=== PATIENT | male | born 1935 | race Caucasian/White ===

== ENCOUNTER 2018-11-15 14:00 | Inpatient (IN) | payer OTHER ==
[~2018-11-15] VITALS: Ht 172.7 cm; Wt 69.4 kg
[2018-11-15 14:48] VITALS: BP 188/99
[2018-11-15 14:48] LABS: APPEARANCE,URINE Clear (CLEAR); BILIRUBIN,URINE Negative (NEGATIVE); COLOR,URINE Yellow (YELLOW); GLUCOSE, URINE (UA) Negative (NEGATIVE); KETONES,URINE Negative (NEGATIVE); LEUKOCYTE ESTERASE ,URINE Negative (NEGATIVE); NITRATE,URINE Negative (NEGATIVE); OCCULT BLOOD,URINE Negative (NEGATIVE); PROTEIN,URINE Negative (NEGATIVE)
[2018-11-15 14:49] LABS: BASOPHILS % (AUTO) 1.1 % (0.0-5.0); EOSINOPHILS % (AUTO) 3.4 % (0.0-8.0); HEMATOCRIT 42.6 % (42-54); MEAN CORPUSCULAR HEMOGLOBIN 33.2 pg (27.0-33.0); MEAN CORPUSCULAR HGB CONC 33.9 g/dL (32.0-36.0); MEAN CORPUSCULAR VOLUME 98.1 fL (79-99); NEUTROPHILS % (AUTO) 68.5 % (40.0-77.0); NUCLEATED RED BLOOD CELLS 0.2 % (0.0-0.19); PLATELET COUNT (AUTO) 145 K/uL (130-400); RED BLOOD CELL COUNT(AUTO) 4.34 MIL/uL (4.50-6.20); RED CELL DISTRIBUTION WIDTH 13.1 % (11.0-15.5)
[2018-11-15 15:01] LABS: INR 1.02 (0.85-1.15); PARTIAL THROMBOPLASTIN TIME 31.5 SEC (26.3-35.5); PROTHROMBIN TIME 10.7 SEC (9.6-11.6)
[2018-11-15 15:03] LABS: CREATININE 1.1 mg/dL (0.5-1.5); POTASSIUM 5.3 mmol/L (3.5-5.1)
[2018-11-15] MEDS ORDERED: ATOR10TA69 PO (15:18)
[2018-11-15] MEDS ORDERED: DOCU50CA13 PO (15:21)
[2018-11-15] MEDS ORDERED: LOSA100T58 PO (15:21)
[2018-11-15] MEDS ORDERED: ASPI-555 PO (15:21)
[2018-11-15] MEDS ORDERED: TAMS-1 PO (15:21)
[2018-11-15] MEDS ORDERED: MULT-1258 PO (15:21)
[2018-11-15] MEDS ORDERED: CARV25TA PO (15:21)
[2018-11-15] MEDS ORDERED: AREDS PO (15:21)
[2018-11-15] MEDS ORDERED: CEFAZOLIN SODIUM 1 GM VIAL IVP SCH (17:45)
[2018-11-15] MEDS ORDERED: SODIUM CHLORIDE 0.9% 1000ML 1,000 ML IV SCH (17:45)
--- NOTE | 2018-11-16 11:31 | NUR ---
ABNORMAL LABS ABNORMAL LABS REPORTED TO DR. NANCE, NA 129, POTASSIUM 5.3. ORDERS TO REPEAT BMP IN AM UPON ARRIVAL TO HOLDING AREA.
[2018-11-17] VITALS (30 sets, daily range): BP systolic 97–152; BP diastolic 51–84
--- NOTE | 2018-11-17 05:58 | NUR ---
POTENTIAL FOR INFECTION: SHAVED CHEST, ABDOMEN, BILATERAL GROIN AND BILATERAL LEGS PER FRED ALMONTE, FOLLOWED BY WIPING WITH SEDRICK: 2% CHLORHEXIDINE GLUCONATE CLOTH PATIENTS PRE-OP SKIN PREP.
[2018-11-17 06:25] LABS: CREATININE 1.1 mg/dL (0.5-1.5); POTASSIUM 3.9 mmol/L (3.5-5.1)
--- NOTE | 2018-11-17 06:40 | NUR ---
PUPIL OCCURRENCE: RIGHT EYE MILD SLUGGISH, PATIENT WITH HISTORY OF MACULAR DEGENERATION.
[2018-11-17] MEDS ORDERED: HEPARIN SODIUM 1000UNIT/ML 10ML VIAL ONE ×3 (06:56→10:03)
[2018-11-17] MEDS ORDERED: ATROPINE SULFATE 0.1 MG/ML 10 ML SYG IVP ONE (06:57)
[2018-11-17] MEDS ORDERED: IODIXANOL 320 MG/ML 100 ML VIAL ONE ×2 (06:57→08:55)
[2018-11-17] MEDS ORDERED: CEFAZOLIN SODIUM 1 GM VIAL ONE (07:34)
[2018-11-17] MEDS ORDERED: NITROGLYCERIN 5 MG/ML 10 ML VIAL IV ONE (08:53)
[2018-11-17] MEDS ORDERED: ONDANSETRON HCL 4 MG/2 ML VIAL IV PRN (11:15)
[2018-11-17] MEDS ORDERED: MORPHINE SULFATE 4 MG/1ML SYG IV PRN (11:15)
[2018-11-17] MEDS ORDERED: NOREPINEPHRINE 4MG/NS 250ML 250 ML IV SCH (11:15)
[2018-11-17] MEDS ORDERED: NITROGLYCERIN 50 MG/D5% WATER 250 BOT IV PRN (11:15)
[2018-11-17] MEDS ORDERED: MORPHINE SULFATE 5 MG/ML VIAL IV PRN (11:15)
[2018-11-17] MEDS ORDERED: SODIUM CHLORIDE 0.9% 1000ML 1,000 ML IV SCH (11:15)
[2018-11-17] MEDS: CEFAZOLIN SODIUM 1 GM VIAL IVP SCH (17:10)
[2018-11-17] MEDS ORDERED: ATORVASTATIN CALCIUM 10 MG TABLET PO SCH (21:00)
[2018-11-17] MEDS ORDERED: TAMSULOSIN HCL 0.4 MG CAP.ER.24H PO SCH (21:00)
[2018-11-17] MEDS ORDERED: DOCUSATE NA 100MG/10ML UDCUP PO SCH (21:00)
[2018-11-17] MEDS: AREDS PO SCH (21:00)
[2018-11-17] MEDS: CARVEDILOL 25 MG TABLET PO SCH (21:10)
[2018-11-18] VITALS (28 sets, daily range): BP systolic 111–174; BP diastolic 51–90
[2018-11-18] MEDS: CEFAZOLIN SODIUM 1 GM VIAL IVP SCH (00:06)
[2018-11-18 03:41] LABS: HEMATOCRIT 38.8 % (42-54); MEAN CORPUSCULAR HGB CONC 34.9 g/dL (32.0-36.0); MEAN CORPUSCULAR VOLUME 97.7 fL (79-99); PLATELET COUNT (AUTO) 135 K/uL (130-400); RED BLOOD CELL COUNT(AUTO) 3.97 MIL/uL (4.50-6.20); RED CELL DISTRIBUTION WIDTH 13.7 % (11.0-15.5); WHITE BLOOD COUNT (AUTO) 7.8 K/uL (4.8-10.8)
[2018-11-18 03:53] LABS: CREATININE 1.1 mg/dL (0.5-1.5)
[2018-11-18] MEDS: CARVEDILOL 25 MG TABLET PO SCH (08:46)
[2018-11-18] MEDS: AREDS PO SCH (08:47)
[2018-11-18] MEDS ORDERED: LOSARTAN 100 MG TABLET PO SCH (09:00)
[2018-11-18] MEDS ORDERED: ASPIRIN 81 MG EC TAB PO SCH (09:00)
[2018-11-18] MEDS ORDERED: MULTIVITAMIN WITH MINERALS TABLET PO SCH (09:00)
--- NOTE | 2018-11-18 10:00 | NUR ---
cm note pt resides with son, independnet with adls and ambulation. dc plan is back to same home setting. Addendum: 11/18/18 at 1847 by JAIRO SINGH CM Amended: Links added.
[2018-11-18] MEDS ORDERED: AMLODIPINE BESYLATE 5 MG TAB PO SCH (13:45)
== END 2018-11-18 16:43 | disposition home or self-care (01) | DRG 269 ==
LOC: EDSTATUS 14:00 → DAHIP 11-17 05:38 → 2BH 11-17 11:39
PROVIDERS: ADMIT Internal Medicine Pulmonary Disease; ATTEND Internal Medicine Pulmonary Disease
PROC: 04V03DZ Restriction of Abdominal Aorta with Intraluminal Device, Percutaneous Approach (ICD-10-PCS; principal; 2018-11-17)
PROC: 04QL3ZZ Repair Left Femoral Artery, Percutaneous Approach (ICD-10-PCS; 2018-11-17)
PROC: B4101ZZ Fluoroscopy of Abdominal Aorta using Low Osmolar Contrast (ICD-10-PCS; 2018-11-17)
PROC: B4141ZZ Fluoroscopy of Superior Mesenteric Artery using Low Osmolar Contrast (ICD-10-PCS; 2018-11-17)
PROC: B4151ZZ Fluoroscopy of Inferior Mesenteric Artery using Low Osmolar Contrast (ICD-10-PCS; 2018-11-17)
PROC: 04QK3ZZ Repair Right Femoral Artery, Percutaneous Approach (ICD-10-PCS; 2018-11-17)
PROC: 04VB3DZ Restriction of Inferior Mesenteric Artery with Intraluminal Device, Percutaneous Approach (ICD-10-PCS; 2018-11-17)
PROC: 04LY3DZ Occlusion of Lower Artery with Intraluminal Device, Percutaneous Approach (ICD-10-PCS; 2018-11-17)
PROC: 04L03DZ Occlusion of Abdominal Aorta with Intraluminal Device, Percutaneous Approach (ICD-10-PCS; 2018-11-17)
PROC: 04LB3DZ Occlusion of Inferior Mesenteric Artery with Intraluminal Device, Percutaneous Approach (ICD-10-PCS; 2018-11-17)
PROC: 047Y3ZZ Dilation of Lower Artery, Percutaneous Approach (ICD-10-PCS; 2018-11-17)
DX: I71.4 Abdominal aortic aneurysm, without rupture (principal); I10 Essential (primary) hypertension; I25.10 Atherosclerotic heart disease of native coronary artery without angina pectoris; E11.9 Type 2 diabetes mellitus without complications; E78.5 Hyperlipidemia, unspecified; N40.0 Benign prostatic hyperplasia without lower urinary tract symptoms; Z95.1 Presence of aortocoronary bypass graft
CPT/HCPCS: 34705; 34709; 34713; 36415; 37242; 71045; 80048; 81003; 85025; 85027; 85610; 85730; 86850; 86900; 86901; 86922; 93005; A4344; C1725; C1760; C1769; C1887; C1894; G0378; J0461; J0690; J1644; J3490; J7030; Q9967

== ENCOUNTER → 2019-03-01 | Outpatient (CLI) | payer OTHER ==
[~2019-03-01] MED LIST: AREDS PO; ASPI-555 PO; ATOR10TA69 PO; CARV25TA PO; DOCU50CA13 PO; LOSA100T58 PO; MULT-1258 PO; TAMS-1 PO
[2019-03-01 10:25] LABS: CREATININE 1.2 mg/dL (0.5-1.5)
== END | disposition home or self-care (01) ==
LOC: LAB 09:25
PROVIDERS: ATTEND Internal Medicine Cardiovascular Disease
DX: I71.4 Abdominal aortic aneurysm, without rupture (principal)
CPT/HCPCS: 36415; 82565; 84520

== ENCOUNTER → 2019-03-13 | Outpatient (CLI) | payer OTHER ==
[~2019-03-13] MED LIST changes: +IOHEXOL 350 MG/ML 100ML INFUS..BTL IV ONE
== END | disposition home or self-care (01) ==
LOC: RAH 08:17
PROVIDERS: ATTEND Internal Medicine Cardiovascular Disease
DX: I71.4 Abdominal aortic aneurysm, without rupture (principal); N28.1 Cyst of kidney, acquired; K57.30 Diverticulosis of large intestine without perforation or abscess without bleeding; K59.00 Constipation, unspecified; K42.9 Umbilical hernia without obstruction or gangrene; I70.0 Atherosclerosis of aorta; I11.9 Hypertensive heart disease without heart failure; J84.10 Pulmonary fibrosis, unspecified
CPT/HCPCS: 74174; Q9967

== ENCOUNTER → 2019-10-04 | Outpatient (CLI) | payer OTHER ==
[~2019-10-04] MED LIST changes: -IOHEXOL 350 MG/ML 100ML INFUS..BTL IV ONE
== END | disposition home or self-care (01) ==
LOC: SHCH 09:02
PROVIDERS: ATTEND Internal Medicine Cardiovascular Disease
DX: I71.4 Abdominal aortic aneurysm, without rupture (principal)
CPT/HCPCS: 93978

== ENCOUNTER → 2020-01-14 | Outpatient (CLI) | payer OTHER ==
[~2020-01-14] MED LIST changes: -ASPI-555 PO; +ASPI-556 PO
[2020-01-14 10:25] LABS: CREATININE 1.3 mg/dL (0.5-1.5)
== END | disposition home or self-care (01) ==
LOC: LAB 01-10 08:45
PROVIDERS: ATTEND Internal Medicine Cardiovascular Disease
DX: I10 Essential (primary) hypertension (principal)
CPT/HCPCS: 36415; 82565; 84520

== ENCOUNTER → 2020-01-22 | Outpatient (CLI) | payer OTHER ==
[~2020-01-22] MED LIST changes: +IOHEXOL 350 MG/ML 100ML INFUS..BTL IV ONE
== END | disposition home or self-care (01) ==
LOC: RAH 08:15
PROVIDERS: ATTEND Internal Medicine Cardiovascular Disease
DX: I71.4 Abdominal aortic aneurysm, without rupture (principal); N28.1 Cyst of kidney, acquired; K57.30 Diverticulosis of large intestine without perforation or abscess without bleeding; J98.11 Atelectasis; Z95.818 Presence of other cardiac implants and grafts
CPT/HCPCS: 74174; Q9967